=== PATIENT | male | born 1960 | race Caucasian/White ===

== ENCOUNTER 2017-07-21 12:24 | Day surgery (SDC) | payer BC ==
[2017-07-21] MEDS ORDERED: LIDOCAINE 2% MDV (20MG/ML) 20ML VIAL IV ONE (12:25)
[2017-07-21] MEDS ORDERED: MIDAZOLAM HCL 2MG/2ML VIAL IV ONE (12:25)
[2017-07-21] MEDS ORDERED: PROPOFOL 10 MG/ML VIAL IV ONE (12:25)
--- NOTE | 2017-07-22 12:50 | Operative Note ---
DATE OF SURGERY: 07/21/2017 OPERATION: COLONOSCOPY with cold forceps polypectomy. PREOPERATIVE DIAGNOSIS: Personal history of colon polyps. POSTOPERATIVE DIAGNOSES: 1. Two sigmoid colon polyps. 2. One rectal polyp, status post cold forceps removal. PROCEDURE: After informed consent was obtained from the patient, he was placed in the left lateral decubitus position in the endoscopy suite, sedated and monitored by the department of anesthesia. Digital rectal examination was unremarkable. A well-lubricated ENX130 colonoscope was inserted into the rectum and advanced to the cecum. Preparation quality was good to excellent. Ileocecal valve, appendiceal orifice, ascending colon, transverse colon, and descending colon were free of inflammatory changes, mass lesions, or polyps. In the sigmoid colon, there were 2 diminutive polyps each removed with a cold forceps. The remainder of the sigmoid colon was unremarkable. The rectum revealed another diminutive polyp which was removed with a cold forceps. J-turn views of the anorectum were unremarkable otherwise. The endoscope was straightened, the rectal ampulla deflated, and the endoscope was removed. RECOMMENDATIONS: I would suggest the patient resume his medications and diet. He will require repeat colonoscopy in 3-5 years pending tissue histology. As always, thank you for allowing me to participate in the healthcare of your patients. CC: Shakir BRAVO
== END 2017-07-21 13:46 | disposition home or self-care (01) ==
LOC: HOP 12:24
PROVIDERS: ATTEND Internal Medicine Gastroenterology
DX: Z87.19 Personal history of other diseases of the digestive system (principal); K63.5 Polyp of colon; K62.1 Rectal polyp; G40.909 Epilepsy, unspecified, not intractable, without status epilepticus

== ENCOUNTER 2018-02-13 16:32 | Observation (INO) | payer BC ==
[2018-02-13] MEDS ORDERED: VANCOMYCIN HCL 1,000 MG in 0.9 % SODIUM CHLORIDE 250ML 250 ML IVPB ONE (16:54)
[2018-02-13 17:15] LABS: BASO % 0.3 % (0-6); EOS % 0.8 % (0-6); GRAN % 67.9 % (47-80); HEMATOCRIT 42.6 % (42.0-52.0); HEMOGLOBIN 14.4 gm/dl (14.0-18.0); LYMPH % 19.9 % (16-45); MEAN CELL VOLUME 92.8 fl (81-97); MEAN CORPUSCULAR HEMOGLOBIN 31.4 pg (27-33); MEAN CORPUSCULAR HGB CONC 33.8 g/dl (32-36); MEAN PLATELET VOLUME 9.3 fl (7.4-10.4); MONO % 11.1 % (0-9); PLATELET COUNT 194 K/uL (130-400); RED BLOOD COUNT 4.59 M/uL (4.40-5.70); RED CELL DISTRIBUTION WIDTH 12.8 % (11.5-14.5); WHITE BLOOD COUNT W/O DIFF 6.4 K/uL (4.2-12.2)
--- NOTE | 2018-02-13 17:56 | Emergency Department Record ---
History of Present Illness - General Chief complaint: Extremity Problem Stated complaint: RT FOREARM REDNESS/SWELLON/PAIN Time Seen by Provider: 02/13/18 16:49 Source: Patient Mode of Arrival: Ambulatory - History of Present Illness Initial comments: Pt to ED for redness to right, dominate, arm. Pt states it started with a swollen and tender elbow (bursa area). No redness to arm. No fever, no DM, no feeling ill. No prior treatment, hx of same. Onset/Timin -: Days(s) Location: Right, Forearm Radiation: Proximal, Distal Severity scale (1-10): 4 Consistency: Constant, Intermittent - Related Data Allergies Allergy/AdvReac Type Severity Reaction Status Date / Time No Known Drug Allergies Allergy Verified 02/13/18 16:41 Travel Screening - Travel/Exposure Within Last 30 Days Have you traveled within the last 30 days?: No - Travel/Exposure Within Last Year Have you traveled outside the [place] in the last year?: No - Additonal Travel Details Have you been exposed to anyone with a communicable illness?: No - Travel Symptoms Symptom Screening: None Review of Systems Constitutional: Denies: Chills, Fever, Night sweats Eyes: Denies: Eye discharge, Photophobia ENT: Denies: Congestion Respiratory: Denies: Cough, Hemoptysis Cardiovascular: Denies: Arrhythmia, Chest pain Endocrine: Denies: Fatigue Gastrointestinal: Denies: Abdominal pain, Nausea, Vomiting Musculoskeletal: Denies: Arthralgia Skin: Reports: As per HPI, Rash. 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) Comment:: takes Kepra for seizures - GI Hx GI Disorders: Yes Hx Rectal Bleeding: Yes (occ after serveral bowel movements) Hx of Polyps: Yes - Hx Genitourinary Disorders: Yes Hx Kidney Stones: Yes - ENDOCRINE Hx Endocrine Disorders: No - MUSCULOSKELETAL Hx Musculoskeletal Disorders: Yes Comment:: joint soreness after work - PSYCH Hx Psych Problems: No - HEMATOLOGY/ONCOLOGY Hx Hematology/Oncology Disorders: No Family Medical History Any Significant Family History?: Yes Hx Cancer: Grandparents *Cancer Comment: grandmother-unknown Hx Diabetes: Father Hx Heart Disease: Father *Heart Comment: stents Hx Liver Disease: Father *Liver Comment: cancer Physical Exam - General General Appearance: Alert, Oriented x3, Cooperative, No acute distress - Head Head exam: Normal inspection - Eye Eye exam: Normal appearance, PERRL - ENT ENT exam: Normal exam Ear exam: Normal external inspection Nasal Exam: Normal inspection Mouth exam: Normal external inspection Teeth exam: Normal inspection - Neck Neck exam: Normal inspection, Full ROM. negative: Tenderness - Respiratory Respiratory exam: Normal lung sounds bilaterally. negative: Chest wall tenderness, Respiratory distress, Wheezes - Cardiovascular Cardiovascular Exam: Regular rate, Normal rhythm, Normal heart sounds - GI/Abdominal GI/Abdominal exam: Soft, Normal bowel sounds. negative: Tenderness - Extremities Extremities exam: Full ROM, Other (olecronon bursa slightly enlarged but not fluctuent or draining, minimal tenderness. Erythema of arm extends wrist to high upper arm, not into axilla. ) Image of Full Body: 1 - erythema to axilla. 2 - erythema Course Vital Signs 02/13/18 16:34 Temperature 98.2 F Pulse Rate 96 H Respiratory 16 Rate Blood Pressure 157/91 Pulse Ox 98 - Reevaluation(s) Reevaluation #1: 02/13/18 17:58 Pt with cellulitis to RUE. Non toxic in appearance. Probable source is infected bursa to elbow. No DM. IV Vancomycin given. Discussed admission and associated risk of this infection but pt does not want to stay. Aware of risk including loss of dominate arm and/or life. Reevaluation #2: 02/13/18 18:24 Pt now agrees to admission. Discussed with MICHELLE Richmond and will admit for contimued AB and Dr. Jona weldon. Medical Decision Making - Management Options MDM Management: Additional Work-up Planned (e.g. ADM/Transfer/OP Study) - Data Complexity MDM Data: Labs Ordered and/or Reviewed, X-Ray Ordered and/or Reviewed, Independent Visualization of Image, Tracing, or Specimen - Lab Data Result diagrams: 02/13/18 16:50 02/13/18 16:50 Lab Results 02/13/18 02/13/18 Range/Units 16:50 16:50 WBC 6.4 (4.2-12.2) K/uL RBC 4.59 (4.40-5.70) M/uL Hgb 14.4 (14.0-18.0) gm/dl Hct 42.6 (42.0-52.0) % MCV 92.8 (81-97) fl MCH 31.4 (27-33) pg MCHC 33.8 (32-36) g/dl RDW 12.8 (11.5-14.5) % Plt Count 194 (130-400) K/uL MPV 9.3 (7.4-10.4) fl Gran % 67.9 (47-80) % Neutrophils % Not Reportable Lymphocytes % 19.9 (16-45) % Monocytes % 11.1 H (0-9) % Eosinophils % 0.8 (0-6) % Basophils % 0.3 (0-6) % Lymphocytes Not Reportable Monocytes Not Reportable Random Glucose 104 (74-109) mg/dL Disposition Disposition: Admit Clinical Impression: Cellulitis of right upper extremity Disposition: Still a Patient at [facility] Decision to Admit: Admit from ER Decision to Admit Date: 02/13/18 Decision to Admit Time: 18:24 Accepting Physician: Jona Bernardo Discussed w/Accepting Physician: 18:24 Condition: (3) Guarded Forms: Patient Portal Access Quality - Quality Measures Quality Measures: N/A - Blood Pressure Screening Does Patient Have Any of the Following: No Blood Pressure Classification: Hypertensive Reading Systolic Measurement: 157 Diastolic Measurement: 91 Screening for High Blood Pressure: < Pre-Hypertensive BP, F/U Documented > [ G8950] Pre-Hypertensive Follow-up Interventions: Follow-up with rescreen every year.
[2018-02-13] MEDS ORDERED: IBUPROFEN 200 MG TABLET PO PRN (20:23)
[2018-02-13] MEDS ORDERED: ACETAMINOPHEN 500 MG TABLET PO PRN (20:24)
[2018-02-13] MEDS ORDERED: LEVETIRACETAM 750 MG PO SCH (22:00)
[2018-02-14] MEDS ORDERED: VANCOMYCIN HCL 1,000 MG in 0.9 % SODIUM CHLORIDE 250ML 250 ML IVPB ONE (06:00)
[2018-02-14 07:10] LABS: ALB/GLOB RATIO 1.5 (1.1-1.8); ALBUMIN 3.9 g/dL (4.0-5.0); ALKALINE PHOSPHATASE 94 U/L (40-129); ALT/SGPT 39 U/L (<41); AST/SGOT 32 U/L (10.0-50.0); BLOOD UREA NITROGEN 17 mg/dL (6-20); EST GLOMERULAR FILTRATION RATE > 60 mL/min; GLUCOSE,RANDOM 98 mg/dL (74-109); TOTAL PROTEIN 6.5 g/dL (6.6-8.7)
[2018-02-14] MEDS ORDERED: IBUPROFEN 600 MG TABLET PO PRN (08:15)
--- NOTE | 2018-02-14 09:42 | History & Physical ---
History of Present Illness - Date of Service Date of Service for History & Physical: 02/14/18 - History of Present Illness Admitting Diagnosis: Acute cellulitis of the right upper extremity - 90% involved History of Present Illness: Mr. Stanley is a 57 year-old male who presented to the ED on with c/o right elbow/upper arm redness. His symptoms began 5 days prior. His occupation is construction work. He denied any recent injury, only complaint of joint pain after working. He denied fever, recent illness, and previous treatment. His history includes: seizure disorder (electrical short- memory loss, several years since last seizure), kidney stones, polyps In the ED, his vital signs were stable, he was afebrile. CBC with differential was unremarkable. X-ray was ordered, image reviewed by Dr. Tavares, likely source of cellulitis is bursa. He was admitted for observation for IV antibiotic therapy for his right upper arm cellulitis. 02/14/18 0900: Pt. is resting comfortably in bed. He currently denies pain. The outlined area of redness on his right elbow/upper arm has receded. He is tolerating IV vanco- he has received 2 doses since admission. His vital signs remain stable. X-ray report is still pending, image reviewed and prominent olecranon bone spur present, likely cause of bursitis leading to cellulitis. Planning for pt. to receive 1 more dose of IV vanco (dosing per pharmacy), and then likely discharge home this afternoon with PO abx (bactrim DS bid for 7 days ). PCP: Dr. Samson Travel Screening - Travel/Exposure Within Last 30 Days Have you traveled within the last 30 days?: No - Travel/Exposure Within Last Year Have you traveled outside the [place] in the last year?: No - Additonal Travel Details Have you been exposed to anyone with a communicable illness?: No - Travel Symptoms Symptom Screening: None Review of Systems Constitutional: Denies: Chills, Fever, Night sweats Eyes: Denies: Eye discharge, Photophobia ENT: Denies: Congestion Respiratory: Denies: Cough, Hemoptysis Cardiovascular: Denies: Arrhythmia, Chest pain Endocrine: Denies: Fatigue Gastrointestinal: Denies: Abdominal pain, Nausea, Vomiting Musculoskeletal: Denies: Arthralgia Skin: Reports: As per HPI, Other (Redness/erythema of right elbow). 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) Comment:: takes Kepra for seizures - GI Hx GI Disorders: Yes Hx Rectal Bleeding: Yes (occ after serveral bowel movements) Hx of Polyps: Yes - Hx Genitourinary Disorders: Yes Hx Kidney Stones: Yes - ENDOCRINE Hx Endocrine Disorders: No - MUSCULOSKELETAL Hx Musculoskeletal Disorders: Yes Comment:: joint soreness after work - PSYCH Hx Psych Problems: No - HEMATOLOGY/ONCOLOGY Hx Hematology/Oncology Disorders: No Family Medical History Any Significant Family History?: Yes Hx Cancer: Grandparents *Cancer Comment: grandmother-unknown Hx Diabetes: Father Hx Heart Disease: Father *Heart Comment: stents Hx Liver Disease: Father *Liver Comment: cancer H&P Meds/Allergies - Allergies Allergies: Allergies Allergy/AdvReac Type Severity Reaction Status Date / Time No Known Drug Allergies Allergy Verified 02/13/18 16:41 - Active Medications Active Medications: Current Medications Acetaminophen (Tylenol 500mg Tab) 1,000 mg PO Q6H PRN PRN Reason: PAIN - MILD TO MODERATE (1-7) Vancomycin HCl 1,000 mg/ (Dextrose) 250 mls @ 250 mls/60 min IVPB Q8H MARIO Stop: 02/19/18 14:01 Ibuprofen (Motrin 600mg) 600 mg PO Q8H PRN PRN Reason: PAIN - MILD TO MODERATE (1-7) Levetiracetam (Keppra) 750 mg PO BID [facility] Last Admin: 02/14/18 08:59 Dose: 750 mg Physical Exam - Vital Signs Vital Signs: Vital Signs - Last 24 Hrs Temp Pulse Pulse Resp BP BP Pulse Ox 02/14/18 07:53 73 16 02/14/18 02:00 97.6 F 73 16 152/90 94 L 02/13/18 19:35 98.1 F 87 16 155/97 94 L 02/13/18 19:11 84 18 154/96 96 02/13/18 16:34 98.2 F 96 H 16 157/91 98 - General General Appearance: Alert, Oriented x3, Cooperative, No acute distress - Head Head exam: Normal inspection - Eye Eye exam: Normal appearance, PERRL - ENT ENT exam: Normal exam Ear exam: Normal external inspection Nasal Exam: Normal inspection Mouth exam: Normal external inspection Teeth exam: Normal inspection - Neck Neck exam: Normal inspection, Full ROM. negative: Tenderness - Respiratory Respiratory exam: Normal lung sounds bilaterally. negative: Chest wall tenderness, Respiratory distress, Wheezes - Cardiovascular Cardiovascular Exam: Regular rate, Normal rhythm, Normal heart sounds - GI/Abdominal GI/Abdominal exam: Soft, Normal bowel sounds. negative: Tenderness - Extremities Extremities exam: Full ROM, Other (olecronon bursa slightly enlarged but not fluctuent or draining, minimal tenderness. Erythema of arm near elbow/bursa area ) - Psychiatric Psychiatric exam: Normal affect, Normal mood Results - Labs Result Diagrams: 02/13/18 16:50 02/14/18 06:26 Labs Last 24 Hours: Laboratory Results - last 24 hr 02/13/18 02/13/18 02/14/18 16:50 16:50 06:26 WBC 6.4 RBC 4.59 Hgb 14.4 Hct 42.6 MCV 92.8 MCH 31.4 MCHC 33.8 RDW 12.8 Plt Count 194 MPV 9.3 Gran % 67.9 Neutrophils % Not Reportable Lymphocytes % 19.9 Monocytes % 11.1 H Eosinophils % 0.8 Basophils % 0.3 Lymphocytes Not Reportable Monocytes Not Reportable Sodium 140 Potassium 3.8 Chloride 105 Carbon Dioxide 23.0 Anion Gap 12.0 BUN 17 Creatinine 1.0 Estimated GFR > 60 Random Glucose 104 98 Calcium 8.6 Total Bilirubin 0.50 AST 32 ALT 39 Alkaline Phosphatase 94 Total Protein 6.5 L Albumin 3.9 L Globulin 2.6 Albumin/Globulin Ratio 1.5 VTE H&P Assessment - Risk for VTE Risk for VTE: Yes Risk Level: Very Low Risk Assessment Date: 02/14/18 Risk Assessment Time: 09:46 VTE Orders Placed or Will Be Placed: No VTE Reason for No Prophylaxis: Not Indicated (Pt. will be discharged today, mobility not impaired) Plan - Inpatient Certification Inpatient Certification: Admit to inpatient care: Based on my medical assessment, after consideration of patient's risk factors (age, co-morbidities and patient presenting symptoms and acuity), I expect that this patient will remain in the hospital greater than or equal to two midnights and that the services needed warrant inpatient care because: Patient Risk Factors: [] Estimated length of stay: [] The patient may reasonably be expected to be discharged or transferred to a hospital within 96 hours after admission to [facility]. Services needed: [] Post hospital care (if known): [] I certify that my determination is in accordance with my understanding of Medicare requirements for reasonable and necessary inpatient services. - Detailed Diagnosis and Plan (1) Cellulitis of right upper extremity Current Visit: Yes Status: Acute Base Code: L03.113 - CELLULITIS OF RIGHT UPPER LIMB Comment: 02/14/18: -Cellulitis of right elbow/upper arm continues to improve -Vanco 1g IV q8h, last dose at 0647 -VS stable, CMP and CBC unremarkable -Will plan to d/c home after next dose of vanco and change to PO abx for d/c (2) Full code status Current Visit: Yes Status: Acute Base Code: Z78.9 - OTHER SPECIFIED HEALTH STATUS Comment: 02/14/18: Pt. is a full code
--- NOTE | 2018-02-14 09:56 | Discharge Summary ---
Providers Discharge Summary Date: 02/14/18 Date of admission: 02/13/18 19:33 Expected Date of Discharge: 02/14/18 Attending physician: CARI RIVERS Primary care physician: TYLER GARSIA D.O. Physical Exam - Vital Signs Vital Signs: Vital Signs - Last 24 Hrs Temp Pulse Pulse Resp BP BP Pulse Ox 02/14/18 07:53 73 16 02/14/18 02:00 97.6 F 73 16 152/90 94 L 02/13/18 19:35 98.1 F 87 16 155/97 94 L 02/13/18 19:11 84 18 154/96 96 02/13/18 16:34 98.2 F 96 H 16 157/91 98 - General General Appearance: Alert, Oriented x3, Cooperative, No acute distress - Head Head exam: Normal inspection - Eye Eye exam: Normal appearance, PERRL - ENT ENT exam: Normal exam Ear exam: Normal external inspection Nasal Exam: Normal inspection Mouth exam: Normal external inspection Teeth exam: Normal inspection - Neck Neck exam: Normal inspection, Full ROM. negative: Tenderness - Respiratory Respiratory exam: Normal lung sounds bilaterally. negative: Chest wall tenderness, Respiratory distress, Wheezes - Cardiovascular Cardiovascular Exam: Regular rate, Normal rhythm, Normal heart sounds - GI/Abdominal GI/Abdominal exam: Soft, Normal bowel sounds. negative: Tenderness - Extremities Extremities exam: Full ROM, Other (olecronon bursa slightly enlarged but not fluctuent or draining, minimal tenderness. Erythema of arm near elbow/bursa area ) - Psychiatric Psychiatric exam: Normal affect, Normal mood Hospitalization - Hospitalization Admission Diagnosis: Acute cellulitis of the right upper extremity - 90% involved - Problem List/Discharge Diagnosis (1) Cellulitis of right upper extremity Current Visit: Yes Status: Acute Base Code: L03.113 - CELLULITIS OF RIGHT UPPER LIMB Comment: 02/14/18: -Cellulitis of right elbow/upper arm continues to improve -Vanco 1g IV q8h, last dose at 0647 -VS stable, CMP and CBC unremarkable -Will plan to d/c home after next dose of vanco and change to PO abx for d/c (2) Full code status Current Visit: Yes Status: Acute Base Code: Z78.9 - OTHER SPECIFIED HEALTH STATUS Comment: 02/14/18: Pt. is a full code - Hospitalization Course Procedures: Imaging and X-Rays 02/13/18 16:56 ELBOW, RIGHT 3 VIEWS [RAD] Stat Abnormal Labs: Abnormal Lab Results 02/13/18 02/14/18 Range/Units 16:50 06:26 Monocytes % 11.1 H (0-9) % Total Protein 6.5 L (6.6-8.7) g/dL Albumin 3.9 L (4.0-5.0) g/dL Condition at Discharge: (2) Stable VTE Discharge VTE Reason For No Overlap Therapy: Not Indicated Discharge Medications - Discharge Medications Prescriptions: Sulfamethoxazole/Trimethoprim [Bactrim] 1 each PO BID #14 tab Home Medications: Ambulatory Orders Ibuprofen [Motrin] 800 mg PO ASDIR PRN 07/13/17 [Last Taken 1 Day Ago ~02/12/18] Levetiracetam [Keppra] 750 mg PO BID 07/13/17 [Last Taken 1 Day Ago ~02/12/18] Sulfamethoxazole/Trimethoprim [Bactrim] 1 each PO BID #14 tab 02/14/18 [Last Taken Unknown] Discharge Plan - Discharge Instructions Activity at Discharge: Resume Usual Activities As Tolerated Diet at Discharge: Regular Diet Additional Instructions: Follow up with your PCP within 3-5 days -Discuss referral to orthopedics for bone spur in your elbow Start Bactrim DS every 12 hours for 7 days, take with food Return to the ED if your symptoms worsen, if you develop a fever, or for any chest pain Quality Measures - Quality Measures Quality Measures: Documentation of Current Medications in Medical Record, Screening for High Blood Pressure and F/U Documented - Current Medications Quality Measure: Measure #130: Documentation of Current Medications Documentation of Current Medications: <Current Medications Documented/Reviewed> [G8427] - Blood Pressure Screening Quality Measure: Screening for High Blood Pressure and Follow-Up Documented Does Patient Have Any of the Following: No Blood Pressure Classification: Hypertensive Reading Systolic Measurement: 157 Diastolic Measurement: 91 Screening for High Blood Pressure: < Pre-Hypertensive BP, F/U Documented > [ G8950] Pre-Hypertensive Follow-up Interventions: Referral to alternative/primary care provider. - Elder Abuse Suspicion Index EASI Reference Information: Juan CAPONE, Samy C, Hetal D, Torri Aburto.Development and validation of a tool to assist physicians identification of elder abuse: The Elder Abuse Suspicion Index (EASI ). Journal of Elder Abuse and Neglect, 2008; 20 (3): 276-300.
[2018-02-14] MEDS ORDERED: LEVETIRACETAM 500 MG TABLET PO SCH (10:00)
--- NOTE | 2018-02-14 11:43 | RADIOLOGY REPORT ---
EXAM: RIGHT ELBOW HISTORY: PAIN. TECHNIQUE: Four views of the right elbow were performed. FINDINGS: There is hypertrophic spurring of the olecranon. No evidence of acute fracture or dislocation. There is soft tissue swelling. IMPRESSION: HYPERTROPHIC SPURRING OF THE OLECRANON. THE REMAINDER OF THE EXAMINATION IS UNREMARKABLE. JOB NUMBER: [id number] MTDD
[2018-02-14] MEDS ORDERED: VANCOMYCIN HCL 1,000 MG in DEXTROSE 5 % IN WATER 250 ML IVPB SCH ×2 (14:00)
[2018-02-14] MEDS ORDERED: TMP/SMZ 160MG/800MG TAB PO SCH (22:00)
== END 2018-02-14 16:00 | disposition home or self-care (01) ==
LOC: ER 16:32 → MEDSURG 19:33 → INTOOBSV 19:33
PROVIDERS: ADMIT Internal Medicine; ATTEND Internal Medicine
DX: L03.113 Cellulitis of right upper limb (principal); Z87.442 Personal history of urinary calculi; Z86.69 Personal history of other diseases of the nervous system and sense organs; Z87.891 Personal history of nicotine dependence
CPT/HCPCS: 99285 ×2; 96365; 96366; 82947; 80053; 85027; 73080; G0378 ×2; J3370 ×2; 99220; J7050; J7060

== ENCOUNTER 2018-03-02 18:14 | Emergency (ER) | payer BC ==
[2018-03-02] MEDS ORDERED: CLINDAMYCIN 150 MG CAP PO ONE (18:25)
--- NOTE | 2018-03-02 18:31 | Emergency Department Record ---
History of Present Illness - General Chief complaint: Extremity Problem Stated complaint: RT ELBOW PAIN Time Seen by Provider: 03/02/18 18:24 Source: Patient Mode of Arrival: Ambulatory Limitations: No limitations - History of Present Illness Initial comments: 57 yo male presents with one day of right elbow pain, swelling and redness. The symptoms are very mild but he reports he had an infection about 3 weeks ago that was treated in the hospital for infection. He has full movement at the elbow. No fever. No streaking. No limitation of movement. He has been off antibiotics for over a week. PCP is [place]. He did follow up during the last episode but the area had resolved. MD Complaint: Extremity pain, Extremity swelling, Joint pain -: Days(s) (1) Location: Left, Elbow History of Same: Yes -: Yes Arthralgia Radiation: Distal Quality: Aching Consistency: Constant Improves with: Immobilization Worsens with: Palpation Associated Symptoms: Denies other symptoms - Related Data Previous Rx's Medication Instructions Recorded Clindamycin HCl [Cleocin HCl] 300 mg PO QID #40 capsule 03/02/18 Allergies Allergy/AdvReac Type Severity Reaction Status Date / Time No Known Drug Allergies Allergy Verified 03/02/18 18:18 Review of Systems Constitutional: Denies: Chills, Fever, Malaise Eyes: Denies: Eye pain, Vision change ENT: Denies: Congestion, Throat pain Respiratory: Denies: Cough Cardiovascular: Denies: Chest pain Endocrine: Denies: Fatigue Gastrointestinal: Denies: Abdominal pain, Diarrhea, Nausea, Vomiting Genitourinary: Reports: Retention. Denies: Dysuria, Frequency Musculoskeletal: Reports: As per HPI, Arthralgia, Joint swelling. 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) Comment:: takes Kepra for seizures - GI Hx GI Disorders: Yes Hx Rectal Bleeding: Yes (occ after serveral bowel movements) Hx of Polyps: Yes - Hx Genitourinary Disorders: Yes Hx Kidney Stones: Yes - ENDOCRINE Hx Endocrine Disorders: No - MUSCULOSKELETAL Hx Musculoskeletal Disorders: Yes Comment:: joint soreness after work - PSYCH Hx Psych Problems: No - HEMATOLOGY/ONCOLOGY Hx Hematology/Oncology Disorders: No Family Medical History Hx Cancer: Grandparents *Cancer Comment: grandmother-unknown Hx Diabetes: Father Hx Heart Disease: Father *Heart Comment: stents Hx Liver Disease: Father *Liver Comment: cancer Physical Exam - General General Appearance: Alert, Oriented x3, Cooperative, No acute distress Limitations: No limitations - Head Head exam: Atraumatic, Normal inspection - Eye Eye exam: Normal appearance. negative: Conjunctival injection - ENT ENT exam: Normal exam Ear exam: Normal external inspection Nasal Exam: Normal inspection Mouth exam: Normal external inspection - Neck Neck exam: Normal inspection - Cardiovascular Peripheral Pulses: 2+: Radial (R) - Extremities Extremities exam: Full ROM (No limiation of full ROM of the elbow), Joint swelling (very mild posterior elbow swellling, faint erythmema (mild)), Normal capillary refill, Tenderness. negative: Normal inspection - Neurological Neurological exam: Alert, Oriented X3 - Psychiatric Psychiatric exam: Normal affect, Normal mood - Skin Skin exam: Erythema Course - Reevaluation(s) Reevaluation #1: EMR reviewed from first ED visit and admission. The symptoms are very mild Antibiotics given in the ED Referral made to ortho for possible olecranon bursitis We discussed outpatient home care, reason for an immediate recheck in the ED and close follow up 03/02/18 18:33 Disposition Disposition: Discharge Clinical Impression: Olecranon bursitis of right elbow Cellulitis Qualifiers: Site of cellulitis: extremity Site of cellulitis of extremity: upper extremity Laterality: right Qualified Code(s): L03.113 - Cellulitis of right upper limb Disposition: Home, Self-Care Condition: (1) Good Instructions: Cellulitis (ED), Elbow Bursitis (ED) Additional Instructions: Ice the area 3 times daily Use a compression wrap Take the antibiotics 4 times daily Return to the ED if worse, fever, swelling, pain Call Dr Samson tomorrow to schedule a recheck Prescriptions: Clindamycin HCl [Cleocin HCl] 300 mg PO QID #40 capsule Referrals: [facility] [DOCTOR OF OSTEOPATH] - [facility] [Provider Group] Forms: Patient Portal Access Time of Disposition: 18:29 Quality - Quality Measures Quality Measures: N/A - Blood Pressure Screening Does Patient Have Any of the Following: No Blood Pressure Classification: Hypertensive Reading Systolic Measurement: 176 Diastolic Measurement: 93 Screening for High Blood Pressure: < Pre-Hypertensive BP, F/U Documented > [ [id number]] Pre-Hypertensive Follow-up Interventions: Referral to alternative/primary care provider.
== END 2018-03-02 18:42 | disposition home or self-care (01) ==
LOC: ER 18:14
DX: L03.113 Cellulitis of right upper limb (principal); Z87.891 Personal history of nicotine dependence
CPT/HCPCS: 99282; 99283